=== PATIENT | female | born 1955 | race Caucasian/White ===

== ENCOUNTER 2022-08-05 11:48 | Emergency (ER) | payer MEDICARE, OTHER, SELFPAY ==
--- NOTE | 2022-08-05 11:53 | XR_ITS ---
FINAL REPORT CLINICAL HISTORY: right foot pain after stubbing toe. bruising and swelling around 1st toe FINDINGS: 3 views of the right foot were obtained. There is mild degenerative change. There is a questionable nondisplaced fracture of the distal aspect of the 1st distal phalanx seen on the oblique view only. IMPRESSION: Questionable nondisplaced fracture of the 1st distal phalanx seen on one view only. Reviewed, Interpreted and Dictated by Sanket Judge III, MD Transcribed by Vicente Coleman Authenticated and . [facility]
--- NOTE | 2022-08-05 11:53 | EXP.UTC ---
Discharge Plan Disposition Patient Disposition: Home, Self-Care Condition: Good Referrals Follow up/Referrals: Shawnee De [Primary Care Provider] - See instructions Judy Masterson DPM [Staff Physician] - See instructions Activity Restrictions/Add. Instructions Additional Instructions/Restrictions: Rest the extremity, apply ice for 15 minutes as tolerated three or four times per day, Elevate the extremity as tolerated while you are resting. Take ibuprofen for pain. Follow up with Dr. Masterson (podiatry). Sometimes there can be fractures or other injuries that don't show up well on the first set of x-rays. I put in a referral but you need to call her office and schedule an appointment. Follow up with your regular doctor. GO TO THE ER FOR ANY WORSENING SYMPTOMS Clinical Impressions Clinical Impression: Contusion of foot, right, Foot pain, right Instructions Patient Instructions: DI for Contusion, DI for Foot Pain Discharge ED Provider: Vipul Borrego [facility] General Stated complaint: Stubbed RT foot big toe 08/04@home AO Time Seen by Provider: 08/05/22 11:53 History of Present Illness Provider Complaint: She states that she stubbed her right great toe on the bed post last night. Since then she has had right foot pain and bruising at the base of the toe. She denies any other injury. Related Data Allergies Allergy/AdvReac Type Severity Reaction Status Date / Time No Known Allergies Allergy Verified 08/05/22 12:05 [facility] Disclaimer: The information contained in this section may have been updated after the patient was seen, as this information can be updated by other users. Social History Smoking Status: Never smoker alcohol intake: never current occupational status: retired Travel in the last 8 weeks: None ROS Obtained: Yes All systems reviewed & no additional complaints except as documented Constitutional Constitutional: Denies chills and Denies fever(s) Integumentary/Breasts Skin/Breast: Denies redness, Denies rash and Denies wounds Neurologic Neurologic: Denies paresthesias Physical Exam General General appearance: alert and in no apparent distress Head Head exam: atraumatic, normocephalic and normal inspection Eye Eye exam: Present normal appearance, PERRL and EOMI ENT ENT exam: Present normal exam, normal oropharynx, mucous membranes moist, TM's normal bilaterally and normal external ear exam Neck Neck exam: Present normal inspection, full ROM and trachea midline; Absent meningismus or lymphadenopathy Chest Chest inspection: Present normal inspection and symmetric chest wall rise; Absent tenderness Respiratory Respiratory exam: Present normal lung sounds bilaterally; Absent respiratory distress Cardiovascular Cardiovascular exam: Present regular rate and normal rhythm; Absent JVD Abdominal Exam Abdominal exam: Present soft and normal bowel sounds; Absent distention, tenderness or guarding Extremities Exam Extremities exam: Present normal capillary refill; Absent calf tenderness Expanded Lower Extremity Exam Right: Ankle exam: Present normal inspection and full ROM; Absent tenderness Foot/toe exam: Present tenderness, swelling and ecchymosis; Absent abrasion, laceration, deformity, crepitus, dislocation, erythema, amputation, puncture wound, foreign body, calcaneal tenderness, tenderness at base of 5th metatarsal, nail avulsion or subungual hematoma Neurovascular/Tendon exam: Present normal capillary refill; Absent pulse deficit or motor deficit Gait: observed and limited by pain Back Exam Back exam: Present normal inspection; Absent tenderness Neurological Exam Neurological exam: Present alert and oriented X3 Psychiatric Psychiatric exam: Present normal affect and normal mood Skin Skin exam: Present warm, dry, intact and normal color Lymphatic Lymphatic Findings: no adenopathy Medical Decision Making
[2022-08-05 12:05] VITALS: BP 115/77; PULSE 69; RESP 19; TEMP 36.9; O2SAT 99; BMI 28.7
[2022-08-05 13:56] VITALS: BP 115/77; PULSE 69; RESP 19; TEMP 36.9; O2SAT 99
== END 2022-08-05 13:56 | disposition home or self-care (01) ==
PROVIDERS: Emergency Provider Nurse Practitioner Family; PCP Nurse Practitioner Family
DX: S90.31XA Contusion of right foot, initial encounter; W22.03XA Walked into furniture, initial encounter; Y92.003 Bedroom of unspecified non-institutional (private) residence as the place of occurrence of the external cause
CPT/HCPCS: 73630; 99213; G0463

== ENCOUNTER 2022-08-11 08:43 | Outpatient (RCR) | payer MEDICARE, OTHER, SELFPAY | END 2022-08-11 10:00 | disposition home or self-care (01) | LOC: PT 08:43 | PROVIDERS: Visit Provider Nurse Practitioner Family | DX: M79.671 Pain in right foot; S92.424A Nondisplaced fracture of distal phalanx of right great toe, initial encounter for closed fracture | CPT/HCPCS: 97760 ==

== ENCOUNTER → 2022-09-08 09:28 | Outpatient (CLI) | payer MEDICARE, OTHER, SELFPAY ==
--- NOTE | 2022-09-08 09:32 | XR_ITS ---
FINAL REPORT CLINICAL HISTORY: R foot pain COMPARISON: 08/05/2022 FINDINGS: Weight-bearing AP, oblique and lateral views of the right foot were obtained. There is a nondisplaced fracture of the head of the proximal phalanx of the great toe. The fracture line extends to the IP joint. No additional fracture is identified. There is degenerative joint disease which is most pronounced at the 1st MTP joint. Soft tissues are normal. IMPRESSION: Nondisplaced fracture of the head of the proximal phalanx of the great toe. Degenerative joint disease most pronounced at the 1st MTP joint. Reviewed, Interpreted and Dictated by Yadi Valenzuela MD Transcribed by Kary Sung Authenticated and [facility]
== END ==
PROVIDERS: PCP Nurse Practitioner Family; Visit Provider Podiatrist
DX: S92.401A Displaced unspecified fracture of right great toe, initial encounter for closed fracture (principal)
CPT/HCPCS: 73630